=== PATIENT | male | born 1955 | race Caucasian/White ===

== ENCOUNTER 2019-03-29 08:40 | Emergency (ER) | payer MEDICARE ==
[2019-03-29] MEDS ORDERED: Tetan/Diph/Pertus SYR(Tdap)* 0.5 ML SYR(BOOSTRIX) use SYR IM ONE (09:10)
[2019-03-29 09:35] VITALS: BP 144/67
--- NOTE | 2019-03-29 11:22 | ED ---
Laceration/Wound HPI - HPI Summary HPI Summary: Patient is a 64-year-old male who presents to the ED with a left index finger laceration to the palmar side of the hand which is approximately 0.6 cm in length. He comes in today due to continuous bleeding. Patient reports he cut the finger yesterday on [place] and has not been able to get the bleeding to cease. Denies n/t. Denies other injuries. Not on blood thinners. - History of Current Complaint Stated Complaint: FINGER LACERATION PER PT Time Seen by Provider: 03/29/19 08:55 Hx Obtained From: Patient Mechanism of Injury: Sharp/Blunt Trauma Onset/Duration: Sudden Onset Aggravating: Movement Alleviating: Compression Timing: Constant Onset Severity: Mild Current Severity: Mild Pain Intensity: 0 Pain Scale Used: 0-10 Numeric Associated Signs & Symptoms: Negative - Allergy/Home Medications Allergies/Adverse Reactions: Allergies Allergy/AdvReac Type Severity Reaction Status Date / Time No Known Allergies Allergy Verified 03/29/19 08:51 PMH/Surg Hx/FS Hx/Imm Hx Previously Healthy: Yes - Immunization History Hx Pertussis Vaccination: No Immunizations Up to Date: Yes Infectious Disease History: No Infectious Disease History: Denies: Traveled Outside the [place] in Last 30 Days - Social History Occupation: Unemployed Lives: With Family Alcohol Use: None Hx Substance Use: No Substance Use Type: Reports: None Hx Tobacco Use: No Smoking Status (MU): Former Smoker Review of Systems Constitutional: Negative Negative: Fever, Chills, Fatigue, Skin Diaphoresis Negative: Palpitations, Chest Pain Negative: Shortness Of Breath Genitourinary: Negative Positive: no symptoms reported, see HPI Negative: Arthralgia, Myalgia Positive: Other - 0.6cm laceration to the aft palmar side of the index finger, irregular Neurological: Negative All Other Systems Reviewed And Are Negative: Yes Physical Exam Triage Information Reviewed: Yes Vital Signs On Initial Exam: Initial Vitals Temp Pulse Resp BP Pulse Ox 98.7 F 71 18 149/59 97 03/29/19 08:51 03/29/19 08:51 03/29/19 08:51 03/29/19 08:51 03/29/19 08:51 Vital Signs Reviewed: Yes Appearance: Positive: Well-Appearing, Well-Nourished Skin: Positive: Skin Color Reflects Adequate Perfusion, Other - 0.6cm laceration to the aft palmar side of the index finger, irregular Head/Face: Positive: Normal Head/Face Inspection Eyes: Positive: Normal, Conjunctiva Clear Neck: Positive: Supple, No Lymphadenopathy Respiratory/Lung Sounds: Positive: Clear to Auscultation, Breath Sounds Present Cardiovascular: Positive: RRR, Pulses are Symmetrical in both Upper and Lower Extremities Musculoskeletal: Positive: Strength/ROM Intact Neurological: Positive: Speech Normal Psychiatric: Positive: Affect/Mood Appropriate AVPU Assessment: Alert Diagnostics - Vital Signs Vital Signs Temp Pulse Resp BP Pulse Ox 03/29/19 09:34 97.9 F 66 16 144/67 98 03/29/19 08:51 98.7 F 71 18 149/59 97 - Laboratory Lab Statement: Any lab studies that have been ordered have been reviewed, and results considered in the medical decision making process. Laceration Repair Course/Dx - Course Course Of Treatment: Patient is evaluated for left palmar side index finger laceration which is proximally 0.6 cm in length and superficial. Bleeding was not controlled on arrival which brings him in today. Cleanse wound thoroughly with normal saline. Lidocaine without epi used for local anesthetic with good effect. 3 sutures using simple interrupted place. 4-0 Prolene. Patient tolerated well. Bleeding is controlled at this time. Gauze wrapped. 5-6 days suture removal. Tetanus updated. - Clinical Impression Provider Diagnoses: Laceration Discharge - Sign-Out/Discharge Documenting (check all that apply): Patient Departure Patient Received Moderate/Deep Sedation with Procedure: No - Discharge Plan Condition: Stable Disposition: HOME Patient Education Materials: Laceration (ED) Referrals: Manfred Resendez MD [Primary Care Provider] - Additional Instructions: Suture removal in 5-6 days Keep the pressure dressing on times approximately 3-6 hours Remove sooner if your finger becomes cold, numb or starts to tingle Keep the area bandaged otherwise for 24 hours then leave open to air unless you are outside or in a dirty environment - Billing Disposition and Condition Condition: STABLE Disposition: Home
== END 2019-03-29 09:34 | disposition home or self-care (01) ==
LOC: ED 08:40
DX: S61.211A Laceration without foreign body of left index finger without damage to nail, initial encounter (principal); W27.8XXA Contact with other nonpowered hand tool, initial encounter; Y93.H2 Activity, gardening and landscaping; Y92.9 Unspecified place or not applicable; Z23 Encounter for immunization; Z87.891 Personal history of nicotine dependence
CPT/HCPCS: 12001; 90471; 90715; 99281